=== PATIENT | female | born 1990 | race Caucasian/White ===

== ENCOUNTER 2016-07-12 08:50 | Emergency (ER) | payer BC, OTHER ==
[2016-07-12] MEDS ORDERED: Ondansetron ODT 4 MG TAB ONE (09:13)
== END 2016-07-12 09:16 | disposition home or self-care (01) ==
LOC: NAV ERS 08:50
DX: S09.90XA Unspecified injury of head, initial encounter (principal); Z79.899 Other long term (current) drug therapy; W17.89XA Other fall from one level to another, initial encounter
CPT/HCPCS: 99283; Q0162